=== PATIENT | female | born 1940 | race Caucasian/White ===

== ENCOUNTER 2018-05-29 16:43 | Inpatient (IN) ==
--- NOTE | 2018-05-29 17:42 | ED ---
HPI General Chief Complaint: Arrhythmia / Palpitations Stated Complaint: Medical clearance-high BP Time Seen by Provider: 05/29/18 17:03 Source: patient and family Mode of arrival: wheelchair Limitations: no limitations History of Present Illness HPI narrative: 77-year-old female with a history of hypertension, high cholesterol the presents to the ED for evaluation of high blood pressure and elevated heart rate. Patient has a history of basically feeling like her blood pressure is elevated since Monday. Per patient she went to see her doctor on Monday for pain management and they noticed that her blood pressure was high. Patient states that she was started on amlodipine yesterday and has been having symptoms since. Patient has been checking her blood pressure and is been in the high 180s but since taking amlodipine it seems like it is come down but today she noted that her heart rate went up and she is been having palpitation like sensation. Per patient she is had some chest pressure on her chest that she has had for almost a year now and he has noted improve or worsen. She denies take any blood thinners. She follows with Dr. Conde for cardiology who has done a substantial workup per patient and has not been able to find the source of why patient gets sensation of palpitations at night. Patient denies any urinary or bowel movement issues. No history of thyroid disease. No fevers chills or sweats. No other medical issues at this time. Related Data Home Medications Medication Instructions Recorded Confirmed amlodipine 5 mg PO DAILY 05/29/18 05/29/18 cholecalciferol (vitamin D3) 5,000 unit PO DAILY 05/29/18 05/29/18 [Vitamin D3] cyanocobalamin (vitamin B-12) 1,000 mcg PO DAILY 05/29/18 05/29/18 [B-12 DOTS] fluoxetine 20 mg PO DAILY 05/29/18 05/29/18 melatonin 5 mg PO HS 05/29/18 05/29/18 omeprazole 20 mg PO DAILY 05/29/18 05/29/18 simvastatin 20 mg PO QPM 05/29/18 05/29/18 Allergies Allergy/AdvReac Type Severity Reaction Status Date / Time No Known Allergies Allergy Verified 05/29/18 17:28 Review of Systems ROS: all other systems reviewed are negative PMFSH History History Provided By: Patient Medical History Medical History Depression (Acute) GERD (gastroesophageal reflux disease) (Acute) High cholesterol (Acute) Social History Social History Second Hand Smoke Exposure: No Smoking Status: Never smoker How Often Do You Have a Drink Containing Alcohol: 2 to 4 times a month Recent Travel in [facility] within the Last 8 Weeks: No Recent Out of Country Travel within the Last 8 Weeks: No Exam Narrative Exam Narrative: GENERAL: Well appearing SKIN: Focused skin assessment warm/dry. HEAD: Atraumatic. Normocephalic. EYES: Pupils equal and round. No scleral icterus. No injection or drainage. ENT: No nasal bleeding or discharge. Mucous membranes pink and moist. Tongue is midline. No uvula deviation. NECK: Trachea midline. No JVD. CARDIOVASCULAR: Irregularly irregular rate and rhythm. No murmur appreciated. RESPIRATORY: No accessory muscle use. Clear to auscultation. Breath sounds equal bilaterally. GASTROINTESTINAL: Abdomen soft, non-tender, nondistended. Hepatic and splenic margins not palpable. MUSCULOSKELETAL: No obvious deformities. No clubbing. No cyanosis. No edema. Full range of motion of the upper and lower extremities bilaterally. 2+ pulses bilaterally. NEUROLOGICAL: Awake and alert. No obvious cranial nerve deficits. Motor grossly within normal limits. Normal speech. PSYCHIATRIC: Appropriate mood and affect; insight and judgment normal. Course Initial Documented Vital Signs Temperature 97.9 F 05/29/18 16:49 Pulse Rate 143 H 05/29/18 16:49 Respiratory Rate 18 05/29/18 16:49 Blood Pressure 130/82 05/29/18 16:49 Pulse Oximetry 97 05/29/18 16:49 Last Documented Vital Signs Temperature 97.9 F 05/29/18 16:49 Pulse Rate 105 H 05/29/18 19:02 Respiratory Rate 18 05/29/18 19:02 Blood Pressure 139/70 05/29/18 19:02 Pulse Oximetry 95 05/29/18 19:02 Medical Decision Making MDM Narrative Medical decision making narrative: If patient continues to be symptomatic and this is new onset A. fib I do recommend admission for further evaluation and treatment. My attending Dr. Bello agrees with this. Patient was started on the drip for the diltiazem.77-year-old female that presents to the ED for evaluation of high blood pressure and high pulse. Patient was properly examined and was found to have signs and symptoms consistent with appears to be A. fib and RVR. Patient does not have a history of this in the past. Patient follows with Dr. Alfaro. Appears to be likely new onset. Patient was given diltiazem. Labs and imaging were done. Labs and imaging showed no sign of acute disease alert and what appears to be A. fib and RVR. Patient was given a bolus of diltiazem with improvement of symptoms but the heart rate now 30 minutes later is back in the 100s. Patient was started on the drip. Patient will be admitted for further evaluation of new onset A. fib RVR. Case discussed with my attending Dr. Bello who agrees with plan. Dr Tripathi agrees with admission. Medical Screen Exam Complete: Yes Emergency Medical Condition: Yes Differential Diagnosis Differential Diagnosis: medication side effect versus normal exam versus A. fib and RVR versus atrial fibrillation versus new onset A. fib Medical Records Medical records reviewed: Yes I reviewed the patient's medical records. Lab Data Lab results reviewed: Yes I reviewed the patient's lab results. Result diagrams: 05/29/18 17:36 05/29/18 17:36 Lab Results 05/29/18 05/29/18 05/29/18 Range/Units 17:36 17:36 17:36 WBC 9.4 (4.0-11.0) th/mm3 RBC 4.97 (4.00-5.30) mil/mm3 Hgb 15.5 H (11.6-15.3) gm/dL Hct 44.5 (35.0-46.0) % MCV 89.6 (80.0-100.0) fL MCH 31.2 (27.0-34.0) pg MCHC 34.8 (32.0-36.0) % RDW 13.9 (11.6-17.2) % Plt Count 287 (150-450) th/mm3 MPV 8.5 (7.0-11.0) fL Neut % (Auto) 60.9 (16.0-70.0) % Lymph % (Auto) 26.4 (9.0-44.0) % [place] % (Auto) 10.0 H (0.0-8.0) % Eos % (Auto) 2.0 (0.0-4.0) % Baso % (Auto) 0.7 (0.0-2.0) % Neut # (Auto) 5.7 (1.8-7.7) th/mm3 Lymph # (Auto) 2.5 (1.0-4.8) th/mm3 [place] # (Auto) 0.9 (0.0-0.9) th/mm3 Eos # (Auto) 0.2 (0.0-0.4) th/mm3 Baso # (Auto) 0.1 (0.0-0.2) th/mm3 WBC Differential . Differential Comment Auto diff final PT 10.0 (9.8-11.6) sec INR 1.0 Ratio APTT 27.8 (24.3-30.1) sec Sodium 140 (136-145) meq/L Potassium 4.0 (3.5-5.1) meq/L Chloride 104 (98-107) meq/L Carbon Dioxide 25.8 (21.0-32.0) meq/L Anion Gap 10 (5-15) meq/L BUN 15 (7-18) mg/dL Creatinine 1.04 H (0.50-1.00) mg/dL Estimated GFR 52 L (>89) mL/min Random Glucose 103 (74-106) mg/dL Calcium 8.6 (8.5-10.1) mg/dL Magnesium 2.2 (1.5-2.5) mg/dL Total Bilirubin 0.3 (0.2-1.0) mg/dL AST 27 (15-37) U/L ALT 37 (10-53) U/L Alkaline Phosphatase 92 (45-117) U/L Total Creatine Kinase 120 (26-192) U/L CK-MB (CK-2) 1.0 (0.5-3.6) ng/mL Troponin I Less than 0.02 L (0.02-0.05) ng/mL Total Protein 7.6 (6.4-8.2) g/dL Albumin 3.9 (3.4-5.0) g/dL TSH (0.358-3.740) uIU/mL 05/29/18 Range/Units 17:36 WBC (4.0-11.0) th/mm3 RBC (4.00-5.30) mil/mm3 Hgb (11.6-15.3) gm/dL Hct (35.0-46.0) % MCV (80.0-100.0) fL MCH (27.0-34.0) pg MCHC (32.0-36.0) % RDW (11.6-17.2) % Plt Count (150-450) th/mm3 MPV (7.0-11.0) fL Neut % (Auto) (16.0-70.0) % Lymph % (Auto) (9.0-44.0) % [place] % (Auto) (0.0-8.0) % Eos % (Auto) (0.0-4.0) % Baso % (Auto) (0.0-2.0) % Neut # (Auto) (1.8-7.7) th/mm3 Lymph # (Auto) (1.0-4.8) th/mm3 [place] # (Auto) (0.0-0.9) th/mm3 Eos # (Auto) (0.0-0.4) th/mm3 Baso # (Auto) (0.0-0.2) th/mm3 WBC Differential Differential Comment PT (9.8-11.6) sec INR Ratio APTT (24.3-30.1) sec Sodium (136-145) meq/L Potassium (3.5-5.1) meq/L Chloride (98-107) meq/L Carbon Dioxide (21.0-32.0) meq/L Anion Gap (5-15) meq/L BUN (7-18) mg/dL Creatinine (0.50-1.00) mg/dL Estimated GFR (>89) mL/min Random Glucose (74-106) mg/dL Calcium (8.5-10.1) mg/dL Magnesium (1.5-2.5) mg/dL Total Bilirubin (0.2-1.0) mg/dL AST (15-37) U/L ALT (10-53) U/L Alkaline Phosphatase (45-117) U/L Total Creatine Kinase (26-192) U/L CK-MB (CK-2) (0.5-3.6) ng/mL Troponin I (0.02-0.05) ng/mL Total Protein (6.4-8.2) g/dL Albumin (3.4-5.0) g/dL TSH 1.560 (0.358-3.740) uIU/mL Imaging Data Attestation: I personally reviewed and interpreted this imaging study as follows : Radiologist's impression: Chest X-Ray 05/29/18 17:28 CONCLUSION: No acute cardiopulmonary disease. Head CT 05/29/18 18:21 CONCLUSION: 1. Cerebral atrophy and chronic ischemic small vessel vasculopathy. 2. No acute intracranial abnormality. . ECG Data Attestation: I personally reviewed and interpreted this ECG as follows: Interpretation: EKG shows atrial fibrillation with RVR with a ventricular rate of about 140 bpm. No sign of ST elevations read by me and attending Dr. Bello. Discharge Plan Discharge Disposition Patient Disposition: 30 Still Patient Discharge Details Diagnosis: Atrial fibrillation with RVR Physicians Team ED Provider: Eleuterio Bello ED Midlevel Provider: Adrian Pham Primary Care Provider: Do Chuy Belle Attending Provider: Diane Tripathi Other Providers: [employer] Status ED Status: Admitted Patient
--- NOTE | 2018-05-29 17:53 | XR ---
EXAM DATE: 05/29/2018 5:28 PM EDT AGE/SEX: 77 years / Female INDICATIONS: Palpitations. CLINICAL DATA: This is the patient's initial encounter. Patient reports that signs and symptoms have been present for 1 day and indicates a pain score of 0/10. MEDICAL/SURGICAL HISTORY: None. None. COMPARISON: No prior exams available for comparison. FINDINGS: A single AP view of the chest demonstrates the lungs to be symmetrically aerated without evidence of mass, infiltrate or effusion. Calcified granuloma left upper lobe. Heart mildly enlarged. The cardio mediastinal contours are unremarkable. Osseous structures are intact. CONCLUSION: No acute cardiopulmonary disease. Electronically signed by: Rogelio Covington MD 05/29/2018 5:52 PM EDT
[2018-05-29 18:04] LABS: Baso # (Auto) 0.1 th/mm3 (0.0-0.2); Baso % (Auto) 0.7 % (0.0-2.0); Eos # (Auto) 0.2 th/mm3 (0.0-0.4); Hematocrit 44.5 % (35.0-46.0); Hemoglobin 15.5 gm/dL (11.6-15.3); Lymph # (Auto) 2.5 th/mm3 (1.0-4.8); Lymph % (Auto) 26.4 % (9.0-44.0); Mean Corpuscular HGB Conc 34.8 % (32.0-36.0); Mean Corpuscular Hemoglobin 31.2 pg (27.0-34.0); Mean Corpuscular Volume 89.6 fL (80.0-100.0); Mean Platelet Volume 8.5 fL (7.0-11.0); Mono # (Auto) 0.9 th/mm3 (0.0-0.9); Neut # (Auto) 5.7 th/mm3 (1.8-7.7); Neut % (Auto) 60.9 % (16.0-70.0); Platelet Count 287 th/mm3 (150-450); Red Blood Count 4.97 mil/mm3 (4.00-5.30); Red Cell Distribution Width 13.9 % (11.6-17.2); White Blood Count 9.4 th/mm3 (4.0-11.0)
[2018-05-29 18:15] LABS: Activated Partial Thrombo Time 27.8 sec (24.3-30.1)
[2018-05-29] MEDS ORDERED: Acetaminophen 325 MG Tablet PO ONE (18:21)
[2018-05-29 18:34] LABS: Alanine Aminotransferase 37 U/L (10-53); Albumin 3.9 g/dL (3.4-5.0); Alkaline Phosphatase 92 U/L (45-117); Anion Gap 10 meq/L (5-15); Aspartate Aminotransferase 27 U/L (15-37); Blood Urea Nitrogen 15 mg/dL (7-18); Calcium 8.6 mg/dL (8.5-10.1); Carbon Dioxide 25.8 meq/L (21.0-32.0); Chloride 104 meq/L (98-107); Creatine Kinase 120 U/L (26-192); Glomerular Filtration Rate 52 mL/min (>89); Glucose,Random 103 mg/dL (74-106); Magnesium 2.2 mg/dL (1.5-2.5); Sodium 140 meq/L (136-145); Total Protein 7.6 g/dL (6.4-8.2)
[2018-05-29] MEDS: dilTIAZem Inj 125 MG in Sodium Chlor 0.9% Inj 100 ML IV.CONT PRN (19:23)
--- NOTE | 2018-05-29 19:39 | CT ---
EXAM DATE: 05/29/2018 6:23 PM EDT AGE/SEX: 77 years / Female INDICATIONS: Cephalgia. Elevated blood pressure. CLINICAL DATA: This is the patient's initial encounter. Patient reports that signs and symptoms have been present for 1 day and indicates a pain score of 8/10. MEDICAL/SURGICAL HISTORY: Hypertension. None. RADIATION DOSE: 36.77 CTDI (mGy) COMPARISON: No prior exams available for comparison. TECHNIQUE: CT of the head without contrast. Using automated exposure control and adjustment of the mA and/or kV according to patient size, radiation dose was kept as low as reasonably achievable to ob tain optimal diagnostic quality images. DICOM format image data is available electronically for revi ew and comparison. FINDINGS: Cerebrum: The ventricles are normal for age. There is a low attenuation throughout the white matter. Cerebral atrophy. No evidence of midline shift, mass lesion, hemorrhage or acute infarction. No ext raaxial fluid collections are seen. Posterior Fossa: The cerebellum and brainstem are intact. The 4th ventricle is midline. The cerebe llopontine angle is unremarkable. Extracranial: The visualized portion of the orbits is intact. Skull: The calvaria is intact. No evidence of skull fracture. CONCLUSION: 1. Cerebral atrophy and chronic ischemic small vessel vasculopathy. 2. No acute intracranial abnormality. . Electronically signed by: Rogelio Covington MD 05/29/2018 7:38 PM EDT
--- NOTE | 2018-05-29 21:53 | P.HP ---
History of Present Illness Service: [facility] Primary Care Physician: Do Chuy Belle History of Present Illness: 77-year-old presents to the emergency department for the evaluation of hypertension. The patient reports that since last Monday her blood pressure has been has been taking it regularly with systolic blood pressure ranges of 160 -200. She reports that over the past year she has had 2 episodes of palpitations occurring at night and has had a complete cardiac workup including loop recorder with her harp maker, Dr. Alfaro. Today, the patient called Dr. Alfaro's office and reported her blood pressures. It was recommended that she seek further workup in the emergency department. The patient denies any chest pain or current palpitations. She denies any shortness of breath. Endorses a headache that was relieved with Tylenol. On arrival to the emergency department she was found to be in A. fib with RVR. No abdominal pain. No nausea/vomiting. No fever/chills. No lateralizing signs/symptoms. Inpatient Certification: I certify that the inpatient services were ordered in accordance with Medicare regulations governing the order. This includes certification that hospital inpatient services are reasonable and necessary and in the case of services not specified as inpatient-only under 42 CFR 419.22(n), that they are appropriately provided as inpatient services in accordance to with the 2-midnight benchmark under 43 CFR 412.3(e) Estimated Total Length of Stay (Days): 2 Plans for Post Hospital Care: Home Review of Systems All other systems reviewed negative except as stated in HPI [facility] - History History Provided By: Patient - Medical History Medical History: Medical History (Last Updated 05/29/18 @ 21:50 by Diane Tripathi MD) Chronic back pain Depression GERD (gastroesophageal reflux disease) High cholesterol History of hysterectomy - Surgical History Surgical History: Surgical History (Last Updated 05/29/18 @ 21:50 by Diane Tripathi MD) History of D&C History of appendectomy History of tonsillectomy - Family History Family History: Family History (Last Updated 05/29/18 @ 21:51 by Diane Tripathi MD) Other Coronary artery disease - Tobacco History Second Hand Smoke Exposure: No Smoking Status: Never smoker - Alcohol History How Often Do You Have a Drink Containing Alcohol: 2 to 4 times a month - Travel History Recent Travel in the [place] Within the Last 8 Weeks: No Recent Travel Out of the Country Within the Last 8 Weeks: No - Immunization History Tetanus Immunization: Unsure Medications and Allergies Active Medications: Active Medications Enoxaparin Sodium (Lovenox Inj) 90 mg SQ Q12H [facility] Fluoxetine HCl (Prozac) 20 mg PO DAILY [facility] Diltiazem HCl 125 mg/ Sodium (Chloride) 125 mls @ 5 mls/hr IV.CONT TITRATE PRN ; Protocol PRN Reason: Per Protocol Last Titration: 05/29/18 21:38 Dose: 10 mg/hr, 10 mls/hr Melatonin (Melatonin) 5 mg PO HS MAY Non-Formulary Medication (Omeprazole [Omeprazole]) 20 mg PO DAILY MAY Non-Formulary Medication (Simvastatin [Simvastatin]) 20 mg PO QPM MAY Sodium Chloride (Ns Flush) 2 ml IV.FLUSH UNSCH PRN PRN Reason: FLUSH AFTER USING IV ACCESS Sodium Chloride (Ns Flush) 2 ml IV.FLUSH PRN PRN PRN Reason: FLUSH AFTER USING IV ACCESS Sodium Chloride (Ns Flush) 2 ml IV.FLUSH BID MAY Allergies Allergy/AdvReac Type Severity Reaction Status Date / Time No Known Allergies Allergy Verified 05/29/18 17:28 Home Medications Medication Instructions Recorded Confirmed Type amlodipine 5 mg PO DAILY 05/29/18 05/29/18 History cholecalciferol (vitamin D3) 5,000 unit PO DAILY 05/29/18 05/29/18 History [Vitamin D3] cyanocobalamin (vitamin B-12) 1,000 mcg PO DAILY 05/29/18 05/29/18 History [B-12 DOTS] fluoxetine 20 mg PO DAILY 05/29/18 05/29/18 History melatonin 5 mg PO HS 05/29/18 05/29/18 History omeprazole 20 mg PO DAILY 05/29/18 05/29/18 History simvastatin 20 mg PO QPM 05/29/18 05/29/18 History Exam Vital signs: Vital Signs 05/29/18 16:49 05/29/18 17:28 05/29/18 19:02 Temperature 97.9 F Pulse Rate 143 H 67 105 H Respiratory Rate 18 16 18 Blood Pressure 130/82 117/58 L 139/70 Pulse Oximetry 97 98 95 05/29/18 21:42 Temperature Pulse Rate 100 H Respiratory Rate 18 Blood Pressure 173/65 H Pulse Oximetry 94 L Intake & Output 05/29/18 05/29/18 05/30/18 06:59 18:59 06:59 Weight 90.718 kg Narrative: Gen.: No acute distress Head: Normocephalic. Atraumatic. EENT: Pupils equal round and reactive to light. Nose without drainage. Airway intact. Throat without injection. Cardiovascular: Tachycardic. Irregularly irregular rhythm. No murmurs, rubs or gallops. Respiratory: Lungs clear to auscultation bilaterally. No wheezes or rhonchi. Abdomen: Soft, nontender, nondistended. No peritoneal signs. Musculoskeletal: No gross deformities. No edema. Skin: No obvious rashes or erythema. Neuro: Sensory and motor grossly intact. Cranial nerves II through XII grossly intact. Results - Labs CBC & Chem 7: 05/29/18 17:36 05/29/18 17:36 Labs: Laboratory Results - last 24 hr 05/29/18 05/29/18 05/29/18 17:36 17:36 17:36 WBC 9.4 RBC 4.97 Hgb 15.5 H Hct 44.5 MCV 89.6 MCH 31.2 MCHC 34.8 RDW 13.9 Plt Count 287 MPV 8.5 Neut % (Auto) 60.9 Lymph % (Auto) 26.4 [place] % (Auto) 10.0 H Eos % (Auto) 2.0 Baso % (Auto) 0.7 Neut # (Auto) 5.7 Lymph # (Auto) 2.5 [place] # (Auto) 0.9 Eos # (Auto) 0.2 Baso # (Auto) 0.1 WBC Differential . Differential Comment Auto diff final PT 10.0 INR 1.0 APTT 27.8 Sodium 140 Potassium 4.0 Chloride 104 Carbon Dioxide 25.8 Anion Gap 10 BUN 15 Creatinine 1.04 H Estimated GFR 52 L Random Glucose 103 Calcium 8.6 Magnesium 2.2 Total Bilirubin 0.3 AST 27 ALT 37 Alkaline Phosphatase 92 Total Creatine Kinase 120 CK-MB (CK-2) 1.0 Troponin I Less than 0.02 L Total Protein 7.6 Albumin 3.9 TSH 05/29/18 17:36 WBC RBC Hgb Hct MCV MCH MCHC RDW Plt Count MPV Neut % (Auto) Lymph % (Auto) [place] % (Auto) Eos % (Auto) Baso % (Auto) Neut # (Auto) Lymph # (Auto) [place] # (Auto) Eos # (Auto) Baso # (Auto) WBC Differential Differential Comment PT INR APTT Sodium Potassium Chloride Carbon Dioxide Anion Gap BUN Creatinine Estimated GFR Random Glucose Calcium Magnesium Total Bilirubin AST ALT Alkaline Phosphatase Total Creatine Kinase CK-MB (CK-2) Troponin I Total Protein Albumin TSH 1.560 - Imaging Impressions Chest X-Ray 05/29/18 17:28 CONCLUSION: No acute cardiopulmonary disease. Head CT 05/29/18 18:21 CONCLUSION: 1. Cerebral atrophy and chronic ischemic small vessel vasculopathy. 2. No acute intracranial abnormality. . Caprini VTE Risk Assessment Caprini VTE Risk Assessment: Moderate/High Risk (score >= 2) Caprini Risk Assessment Model: Point Value = 1 Point Value = 2 Point Value = 3 Point Value = 5 Age 41-60 Minor surgery BMI > 25 kg/m2 Swollen legs Varicose veins or History of unexplained or recurrent spontaneous Oral contraceptives or hormone replacement Sepsis (< 1 month) Serious lung disease, including pneumonia (< 1 month) Abnormal pulmonary function Acute myocardial infarction Congestive heart failure (< 1 month) History of inflammatory bowel disease Medical patient at bed rest Age 61-74 Arthroscopic surgery Major open surgery (> 45 min) Laparoscopic surgery (> 45 min) Malignancy Confined to bed (> 72 hours) Immobilizing plaster cast Central venous access Age >= 75 History of VTE Family history of VTE Factor V Leiden Prothrombin [id number] Lupus anticoagulant Anticardiolipin antibodies Elevated serum homocysteine Heparin-induced thrombocytopenia Other congenital or acquired thrombophilia Stroke (< 1 month) Elective arthroplasty Hip, pelvis, or leg fracture Acute spinal cord injury (< 1 month) Prophylaxis Regimen: Total Risk Factor Score Risk Level Prophylaxis Regimen 0-1 Low Early ambulation 2 Moderate Order ONE of the following: *Sequential Compression Device (SCD) *Heparin 5000 units SQ BID 3-4 Higher Order ONE of the following medications: *Heparin 5000 units SQ TID *Enoxaparin/Lovenox 40 mg SQ daily (WT < 150 kg, CrCl > 30 mL/min) *Enoxaparin/Lovenox 30 mg SQ daily (WT < 150 kg, CrCl > 10-29 mL/min) *Enoxaparin/Lovenox 30 mg SQ BID (WT < 150 kg, CrCl > 30 mL/min) AND/OR *Sequential Compression Device (SCD) 5 or more Highest Order ONE of the following medications: *Heparin 5000 units SQ TID (Preferred with Epidurals) *Enoxaparin/Lovenox 40 mg SQ daily (WT < 150 kg, CrCl > 30 mL/min) *Enoxaparin/Lovenox 30 mg SQ daily (WT < 150 kg, CrCl > 10-29 mL/min) *Enoxaparin/Lovenox 30 mg SQ BID (WT < 150 kg, CrCl > 30 mL/min) AND *Sequential Compression Device (SCD) Assessment and Plan - Plan Assessment/plan: 1. Atrial fibrillation (new onset) with RVR EKG significant for atrial fibrillation with rapid ventricular response, no signs of ischemia, personally reviewed Initial troponin negative Patient denies chest pain Diltiazem bolus and drip Therapeutic Lovenox Patient's harp maker, Dr. Alfaro consulted, appreciate recommendations 2. Hyperlipidemia Continue home statin 3. Hypertension Holding home amlodipine is patient on diltiazem drip 4. Depression Continue home Prozac FEN Cardiac diet Electrolytes: Monitor and replete as needed Therapeutic Lovenox
[2018-05-29] MEDS: Enoxaparin Inj 100 MG/ML Syringe SQ SCH (22:21)
[2018-05-30 05:53] LABS: Hemoglobin 14.8 gm/dL (11.6-15.3); Mean Corpuscular HGB Conc 33.5 % (32.0-36.0); Mean Corpuscular Hemoglobin 30.6 pg (27.0-34.0); Mean Corpuscular Volume 91.2 fL (80.0-100.0); Mean Platelet Volume 8.4 fL (7.0-11.0); Platelet Count 272 th/mm3 (150-450); Red Blood Count 4.83 mil/mm3 (4.00-5.30); Red Cell Distribution Width 13.4 % (11.6-17.2); White Blood Count 7.2 th/mm3 (4.0-11.0)
[2018-05-30 06:19] LABS: Calcium 8.6 mg/dL (8.5-10.1); Potassium 3.5 meq/L (3.5-5.1)
[2018-05-30] MEDS: Pantoprazole Sodium 20 MG DR Tablet PO SCH (08:44)
--- NOTE | 2018-05-30 10:18 | P.PN ---
Subjective Interval history: Nursing reports that the patient is complaining of nausea. Patient says she normally does not have nausea on a daily basis. Her heart rate was stable overnight however now it is running up to the 140s while she is on Cardizem drip at this time. Physical Exam Vital signs: Vital Signs 05/29/18 16:49 05/29/18 17:28 05/29/18 19:02 Temperature 97.9 F Pulse Rate 143 H 67 105 H Respiratory Rate 18 16 18 Blood Pressure 130/82 117/58 L 139/70 Pulse Oximetry 97 98 95 05/29/18 21:42 05/29/18 21:57 05/29/18 22:22 Temperature Pulse Rate 100 H 105 H 96 H Respiratory Rate 18 18 18 Blood Pressure 173/65 H 173/65 H 144/76 H Pulse Oximetry 94 L 96 94 L 05/30/18 00:00 05/30/18 01:00 05/30/18 02:00 Temperature 98.2 F Pulse Rate 99 H 97 H 101 H Respiratory Rate 18 Blood Pressure 135/88 Pulse Oximetry 96 05/30/18 03:00 05/30/18 04:00 05/30/18 05:00 Temperature 97.8 F Pulse Rate 93 H 95 H 97 H Respiratory Rate 16 Blood Pressure 116/71 Pulse Oximetry 95 05/30/18 06:00 05/30/18 07:00 Temperature Pulse Rate 96 H 79 Respiratory Rate Blood Pressure Pulse Oximetry Intake & Output 05/29/18 05/30/18 05/30/18 18:59 06:59 18:59 Intake Total 240 / 240 Balance 240 / 240 Weight 90.718 kg 90.5 kg Intake: Oral 240 / 240 Other: Date of Last Bowel Movement 05/29/18 Narrative: Heart rate is very tachycardic, irregular Clear lungs bilaterally, unlabored breathing Abdomen soft, nontender, nondistended Results - Labs CBC & Chem 7: 05/30/18 05:08 05/31/18 04:17 Laboratory Results - last 24 hr 05/29/18 05/29/18 05/29/18 17:36 17:36 17:36 WBC 9.4 RBC 4.97 Hgb 15.5 H Hct 44.5 MCV 89.6 MCH 31.2 MCHC 34.8 RDW 13.9 Plt Count 287 MPV 8.5 Neut % (Auto) 60.9 Lymph % (Auto) 26.4 [place] % (Auto) 10.0 H Eos % (Auto) 2.0 Baso % (Auto) 0.7 Neut # (Auto) 5.7 Lymph # (Auto) 2.5 [place] # (Auto) 0.9 Eos # (Auto) 0.2 Baso # (Auto) 0.1 WBC Differential . Differential Comment Auto diff final PT 10.0 INR 1.0 APTT 27.8 Sodium 140 Potassium 4.0 Chloride 104 Carbon Dioxide 25.8 Anion Gap 10 BUN 15 Creatinine 1.04 H Estimated GFR 52 L Random Glucose 103 Calcium 8.6 Magnesium 2.2 Total Bilirubin 0.3 AST 27 ALT 37 Alkaline Phosphatase 92 Total Creatine Kinase 120 CK-MB (CK-2) 1.0 Troponin I Less than 0.02 L Total Protein 7.6 Albumin 3.9 TSH 05/29/18 05/30/18 05/30/18 17:36 05:08 05:08 WBC 7.2 RBC 4.83 Hgb 14.8 Hct 44.0 MCV 91.2 MCH 30.6 MCHC 33.5 RDW 13.4 Plt Count 272 MPV 8.4 Neut % (Auto) Lymph % (Auto) [place] % (Auto) Eos % (Auto) Baso % (Auto) Neut # (Auto) Lymph # (Auto) [place] # (Auto) Eos # (Auto) Baso # (Auto) WBC Differential Differential Comment PT INR APTT Sodium 142 Potassium 3.5 Chloride 102 Carbon Dioxide 27.0 Anion Gap 13 BUN 15 Creatinine 0.81 Estimated GFR 69 L Random Glucose 110 H Calcium 8.6 Magnesium Total Bilirubin AST ALT Alkaline Phosphatase Total Creatine Kinase CK-MB (CK-2) Troponin I Total Protein Albumin TSH 1.560 - Imaging Impressions Chest X-Ray 05/29/18 17:28 CONCLUSION: No acute cardiopulmonary disease. Head CT 05/29/18 18:21 CONCLUSION: 1. Cerebral atrophy and chronic ischemic small vessel vasculopathy. 2. No acute intracranial abnormality. . Assessment and Plan - Plan 77-year-old white female who was admitted with A. fib with RVR. 1. Atrial fibrillation (new onset) with RVR Status post diltiazem bolus, still requiring diltiazem drip, cardiology following I will start oral cardizem for now 30 mg qid until cards adjust meds or HR improves Therapeutic Lovenox, patient counseled regarding oral anticoagulation with risks and benefits 2. Hyperlipidemia Continue home statin 3. Hypertension Holding home amlodipine as patient on diltiazem drip Monitor for now, still elevated after coming off of diltiazem drip may benefit from starting lisinopril 4. Depression Continue home Prozac Addendum: Nursing reports that the patient is having her third round of emesis this morning which is nonbloody. Patient reported having some diarrhea as well. No chest pain. dose of Zofran. Will monitor, likely acute gastroenteritis which could be causing her A. fib flareup.
--- NOTE | 2018-05-30 10:48 | ECG ---
Date Performed: 05/29/2018 Time Performed: 17:22:29 PTAGE: 77 years EKG: ATRIAL FIBRILLATION WITH RAPID VENTRICULAR RESPONSE MINIMAL ST DEPRESSION ABNORMAL RHYTHM E CG NO PREVIOUS TRACING DOCTOR: Pedro Taylor Interpretating Date/Time 05/30/2018 10:47:05
[2018-05-30] MEDS: Enoxaparin Inj 100 MG/ML Syringe SQ SCH ×2 (12:53→22:21)
[2018-05-30] MEDS: FLUoxetine 20 MG Capsule PO SCH (12:53)
[2018-05-30] MEDS: dilTIAZem Inj 125 MG in Sodium Chlor 0.9% Inj 100 ML IV.CONT PRN ×2 (15:02→22:23)
[2018-05-30] MEDS: dilTIAZem 30 MG Tablet PO SCH ×3 (15:48→22:20)
--- NOTE | 2018-05-30 18:46 | ECHRPT ---
Indication: A FIB FLUTTER CONCLUSIONS The left ventricular systolic function is normal with an estimated ejection fraction in the range of 55-60%. Mild concentric left ventricular hypertrophy. Trace mitral valve regurgitation. There is trace tricuspid valve regurgitation. BP: / HR: Rhythm: MEASUREMENTS (Male / Female) Normal Values Technical Quality: 2D ECHO LV Diastolic Diameter PLAX 5.2 cm 4.2 - 5.9 / 3.9 - 5.3 cm LV Systolic Diameter PLAX 3.8 cm IVS Diastolic Thickness 1.3 cm 0.6 - 1.0 / 0.6 - 0.9 cm LVPW Diastolic Thickness 1.0 cm 0.6 - 1.0 / 0.6 - 0.9 cm LV Relative Wall Thickness 0.4 RV Internal Dim ED PLAX 1.7 cm Aortic Root Diameter 2.6 cm LA Systolic Diameter LX 3.9 cm 3.0 - 4.0 / 2.7 - 3.8 cm DOPPLER Mitral E Point Velocity 99.3 cm/s TR Peak Velocity 194.5 cm/s TR Peak Gradient 15.1 mmHg Right Atrial Pressure 10.0 mmHg Pulmonary Artery Systolic Pressu 25.1 mmHg Right Ventricular Systolic Press 25.1 mmHg PV Peak Velocity 107.0 cm/s PV Peak Gradient 4.6 mmHg FINDINGS LEFT VENTRICLE Normal left ventricular size. The left ventricular systolic function is normal with an estimated ejection fraction in the range of 55-60%. No regional wall motion abnormalities are present. Mild concentric left ventricular hypertrophy. RIGHT VENTRICLE Normal right ventricular size and systolic function. LEFT ATRIUM The left atrial size is upper limits of normal. RIGHT ATRIUM The right atrial size is normal. ATRIAL SEPTUM Normal atrial septal thickness without atrial level shunting by limited color doppler interrogation. AORTA The aortic root and proximal ascending aorta are normal in size on limited imaging. MITRAL VALVE Structurally normal mitral valve. Trace mitral valve regurgitation. AORTIC VALVE Trileaflet aortic valve. No aortic valve stenosis or regurgitation. TRICUSPID VALVE Structurally normal tricuspid valve. There is trace tricuspid valve regurgitation. The estimated pulmonary arterial pressure is 25 mmHg. PULMONARY VALVE No pulmonary valve regurgitation or stenosis. VESSELS The inferior vena cava is normal in size. PERICARDIUM No pericardial effusion. David Alfaro DO (Electronically Signed) Final Date:30 May 2018 18:45
[2018-05-30] MEDS ORDERED: Melatonin 5 MG Tablet PO SCH (21:00)
--- NOTE | 2018-05-30 23:50 | MB ---
cc: David Alfaro DO DATE: 05/30/2018 REASON FOR CONSULTATION: Atrial fibrillation with rapid ventricular response. HISTORY OF PRESENT ILLNESS: Eda Dumont is a pleasant 77-year-old female, whom I see in the office and asked to be evaluated at the emergency room due to elevated heart rates. She had noticed that her blood pressure was elevated and she was started on Norvasc at that time. She continued to watch her blood pressures and they seemed to come down from 160-200 systolically down to 140s, but she also mentioned that her heart rates were 120-140. She has had 2 previous episodes of palpitations for which she did an event monitor, but did not show any previous arrhythmias. As she said that she was noting her heart was racing and not feeling well, I asked that she come to the emergency room. On arrival, she was found to be in atrial fibrillation with rapid ventricular response and started on a Cardizem drip. She is currently at 10 mg/hour and heart rates were controlled this morning until she got nauseous after eating breakfast. She states this is a relatively normal event for. After this, her heart rate has increased to 120s-140s. She denies any chest pain or shortness of breath. PAST MEDICAL HISTORY: 1. Chronic back pain. 2. Depression. 3. Gastroesophageal reflux disease. 4. Hyperlipidemia. PAST SURGICAL HISTORY: 1. Hysterectomy. 2. D and C. 3. Appendectomy. 4. Tonsillectomy. ALLERGIES: NO KNOWN DRUG ALLERGIES. MEDICATIONS: 1. Zocor 20 mg every night. 2. Omeprazole 20 mg daily. 3. Melatonin 5 mg every night. 4. Fluoxetine 20 mg daily. 5. Norvasc 5 mg daily. FAMILY HISTORY: Denies premature coronary artery disease or sudden cardiac within the family. SOCIAL HISTORY: The patient is a lifelong nonsmoker. She rarely drinks alcohol. Denies any drug abuse. REVIEW OF SYSTEMS: Fourteen systems were reviewed including osteopathic. Pertinent positives and negatives above, otherwise negative. PHYSICAL EXAMINATION: VITAL SIGNS: Temperature 98.5, heart rate 130, blood pressure 149/70, respirations 17, pulse oximetry 96% on room air. GENERAL: The patient appears well, in no acute distress, alert, awake and oriented x3. HEENT: Extraocular muscles intact. Mucous membranes moist. NECK: Supple. No JVD at 45 degrees. No carotid bruits heard bilaterally. Carotid upstroke is brisk in nature. HEART: Irregularly irregular and tachycardic. Positive first and second heart sounds with no noted murmurs, gallops or rubs. LUNGS: Clear to auscultation bilaterally. No wheezes, rales or rhonchi. ABDOMEN: Soft, nontender, nondistended. No organomegaly noted. EXTREMITIES: Show trace edema bilaterally, but no clubbing or cyanosis. Femoral and distal pulses are intact bilaterally. NEUROLOGIC: No focal deficits. SKIN: Warm, dry and intact. OSTEOPATHIC: No kyphoscoliosis, lordosis or paraspinal tender points. LABORATORY DATA: Hemoglobin 14.8, hematocrit 44.0, platelets 272. Potassium 3.5, BUN 15, creatinine 0.81. Troponin less than 0.02. Electrocardiogram (05/29/2018 at 1722): Atrial fibrillation with rapid ventricular response, nonspecific ST-T wave changes. IMPRESSION: 1. New onset atrial fibrillation with rapid ventricular response. 2. Hyperlipidemia. 3. Hypertension. 4. Depression. RECOMMENDATIONS: 1. Ms. Dumont presented with atrial fibrillation with rapid ventricular response and was previously controlled, but since having nauseousness this morning, her heart rates are elevated again. 2. We will plan on increasing her Cardizem drip to 15 mg/hour to see if this will further control her heart rate. If this does control her heart rate. We will change her Norvasc to Cardizem p.o. 3. If unable to control her heart rate, then I would consider doing a YULIA and cardioversion to try to place her back into sinus rhythm. This can also be considered. Even if her heart rates are better controlled as this seems to probably be a new onset atrial fibrillation. 4. She has a CHADS-VASc score of 4, and because of this, I would recommend her being placed on a NOAC. We will plan on placing her on Eliquis 5 mg b.i.d. I did discuss with her and she is worried about how much her insurance will cover, but after being discharged from the hospital, she will apply for patient assistance through the company. 5. We will check a 2-D echo to look at her overall left ventricular function, cardiac structure and possible valvulopathies. 6. Further recommendations will be made based on her hospital course. Thank you for allowing me to see Eda Dumont. If there are any questions, please do not hesitate to call. David Alfaro DO VGP/sj , 10:39 PM , 10:51 PM
[2018-05-31 05:17] LABS: Albumin 3.4 g/dL (3.4-5.0); Anion Gap 9 meq/L (5-15); Aspartate Aminotransferase 18 U/L (15-37); Blood Urea Nitrogen 16 mg/dL (7-18); Calcium 9.1 mg/dL (8.5-10.1); Carbon Dioxide 25.7 meq/L (21.0-32.0); Chloride 105 meq/L (98-107); Glomerular Filtration Rate 60 mL/min (>89); Glucose,Random 135 mg/dL (74-106); Potassium 3.5 meq/L (3.5-5.1); Sodium 140 meq/L (136-145)
[2018-05-31 05:20] LABS: Alanine Aminotransferase 31 U/L (10-53); Alkaline Phosphatase 77 U/L (45-117); Total Protein 6.8 g/dL (6.4-8.2)
[2018-05-31] MEDS: dilTIAZem Inj 125 MG in Sodium Chlor 0.9% Inj 100 ML IV.CONT PRN (08:50)
[2018-05-31] MEDS: Pantoprazole Sodium 20 MG DR Tablet PO SCH (08:59)
[2018-05-31] MEDS: FLUoxetine 20 MG Capsule PO SCH (09:00)
[2018-05-31] MEDS ORDERED: Naproxen 500 MG Tablet PO ONE (10:05)
[2018-05-31 13:28] VITALS: RESP 18
[2018-05-31] MEDS ORDERED: dilTIAZem CD 180 MG Capsule PO ONE (14:00)
[2018-05-31 16:03] VITALS: PULSE 78
[2018-05-31 16:07] VITALS: BP 140/63; TEMP 98.5; O2SAT 96
--- NOTE | 2018-05-31 16:46 | P.PN ---
Subjective Interval history: Nursing denies any deterioration since last night. Patient tolerating p.o. intake. No palpitations. Physical Exam Vital signs: Vital Signs 05/30/18 17:00 05/30/18 19:00 05/30/18 20:00 Temperature 98.3 F Pulse Rate 93 H 86 76 Respiratory Rate 16 Blood Pressure 141/67 H Pulse Oximetry 05/30/18 23:00 05/31/18 00:00 05/31/18 02:04 Temperature 98.4 F Pulse Rate 65 88 64 Respiratory Rate 16 Blood Pressure 150/70 H Pulse Oximetry 05/31/18 03:00 05/31/18 04:00 05/31/18 05:55 Temperature 98.2 F Pulse Rate 71 68 75 Respiratory Rate 16 Blood Pressure 154/62 H Pulse Oximetry 05/31/18 06:00 05/31/18 08:00 05/31/18 12:00 Temperature 98.4 F 98.3 F Pulse Rate 65 67 56 L Respiratory Rate 16 18 Blood Pressure 123/59 L 123/57 L Pulse Oximetry 94 L 94 L 05/31/18 13:00 05/31/18 14:00 05/31/18 15:00 Temperature Pulse Rate 68 68 66 Respiratory Rate Blood Pressure Pulse Oximetry 05/31/18 16:00 Temperature 98.5 F Pulse Rate 78 Respiratory Rate 18 Blood Pressure 140/63 Pulse Oximetry 96 Intake & Output 05/30/18 05/31/18 05/31/18 18:59 06:59 18:59 Intake Total 125 / 125 365 / 365 125 / 125 Balance 125 / 125 365 / 365 125 / 125 Weight 90.5 kg Intake: IV 125 / 125 125 / 125 125 / 125 Cardizem Inj 125 MG In NS Inj 125 / 125 125 / 125 125 / 125 100 ML @ 5 MG/HR 5 mls/hr IV. CONT TITRATE PRN Rx#:[id number] Oral 240 / 240 Other: # Voids 2 Date of Last Bowel Movement 05/30/18 Narrative: Regular rate irregular rhythm Clear lungs bilaterally, unlabored breathing Results - Labs CBC & Chem 7: 05/30/18 05:08 05/31/18 04:17 Laboratory Results - last 24 hr 05/31/18 04:17 Sodium 140 Potassium 3.5 Chloride 105 Carbon Dioxide 25.7 Anion Gap 9 BUN 16 Creatinine 0.92 Estimated GFR 60 L Random Glucose 135 H Calcium 9.1 Total Bilirubin 0.4 AST 18 ALT 31 Alkaline Phosphatase 77 Total Protein 6.8 D Albumin 3.4 Assessment and Plan - Plan 77-year-old white female who was admitted with A. fib with RVR. 1. Atrial fibrillation (new onset) with RVR Status post diltiazem bolus, -Now off the diltiazem drip, on oral Cardizem, heart rate controlled -Eliquis per cardiology Patient has met maximal benefit from hospitalization and is clinically stable for discharge.
--- NOTE | 2018-05-31 18:34 | P.PNCA ---
Subjective Interval history: No events overnight Heart rates controlled, Cardizem PO given and now off Cardizem drip No chest pain, SOB, or palpitations Medications and Allergies Allergies Allergy/AdvReac Type Severity Reaction Status Date / Time No Known Allergies Allergy Verified 05/29/18 17:28 Home Medications Medication Instructions Recorded Confirmed Type cholecalciferol (vitamin D3) 5,000 unit PO DAILY 05/29/18 05/29/18 History [Vitamin D3] cyanocobalamin (vitamin B-12) 1,000 mcg PO DAILY 05/29/18 05/29/18 History [B-12 DOTS] fluoxetine 20 mg PO DAILY 05/29/18 05/29/18 History melatonin 5 mg PO HS 05/29/18 05/29/18 History omeprazole 20 mg PO DAILY 05/29/18 05/29/18 History simvastatin 20 mg PO QPM 05/29/18 05/29/18 History Physical Exam Vital signs: Vital Signs 05/30/18 19:00 05/30/18 20:00 05/30/18 23:00 Temperature 98.3 F Pulse Rate 86 76 65 Respiratory Rate 16 Blood Pressure 141/67 H Pulse Oximetry 05/31/18 00:00 05/31/18 02:04 05/31/18 03:00 Temperature 98.4 F Pulse Rate 88 64 71 Respiratory Rate 16 Blood Pressure 150/70 H Pulse Oximetry 05/31/18 04:00 05/31/18 05:55 05/31/18 06:00 Temperature 98.2 F Pulse Rate 68 75 65 Respiratory Rate 16 Blood Pressure 154/62 H Pulse Oximetry 05/31/18 08:00 05/31/18 12:00 05/31/18 13:00 Temperature 98.4 F 98.3 F Pulse Rate 67 56 L 68 Respiratory Rate 16 18 Blood Pressure 123/59 L 123/57 L Pulse Oximetry 94 L 94 L 05/31/18 14:00 05/31/18 15:00 05/31/18 16:00 Temperature 98.5 F Pulse Rate 68 66 78 Respiratory Rate 18 Blood Pressure 140/63 Pulse Oximetry 96 Intake & Output 05/30/18 05/31/18 05/31/18 18:59 06:59 18:59 Intake Total 125 / 125 365 / 365 125 / 125 Balance 125 / 125 365 / 365 125 / 125 Weight 90.5 kg Intake: IV 125 / 125 125 / 125 125 / 125 Cardizem Inj 125 MG In NS Inj 125 / 125 125 / 125 125 / 125 100 ML @ 5 MG/HR 5 mls/hr IV. CONT TITRATE PRN Rx#:[id number] Oral 240 / 240 Other: # Voids 2 Date of Last Bowel Movement 05/30/18 Narrative: GENERAL: NAD, AAOx3 SKIN: Warm and dry. HEAD: Atraumatic. Normocephalic. EYES: Pupils equal and round. No scleral icterus. No injection or drainage. ENT: No nasal bleeding or discharge. Mucous membranes pink and moist. NECK: Trachea midline. No JVD. CARDIOVASCULAR: Irregularly irregular RESPIRATORY: No accessory muscle use. Clear to auscultation. Breath sounds equal bilaterally. GASTROINTESTINAL: Abdomen soft, non-tender, nondistended. Hepatic and splenic margins not palpable. MUSCULOSKELETAL: Extremities without clubbing, cyanosis, or edema. No obvious deformities. NEUROLOGICAL: Awake and alert. No obvious cranial nerve deficits. Motor grossly within normal limits. Five out of 5 muscle strength in the arms and legs. Normal speech. PSYCHIATRIC: Appropriate mood and affect; insight and judgment normal. Results 05/30/18 05:08 05/31/18 04:17 Cardiac Enzymes 05/29/18 05/31/18 Range/Units 17:36 04:17 AST 27 18 (15-37) U/L CK-MB (CK-2) 1.0 (0.5-3.6) ng/mL Troponin I Less than 0.02 L (0.02-0.05) ng/mL CBC 05/30/18 Range/Units 05:08 WBC 7.2 (4.0-11.0) th/mm3 RBC 4.83 (4.00-5.30) mil/mm3 Hgb 14.8 (11.6-15.3) gm/dL Hct 44.0 (35.0-46.0) % Plt Count 272 (150-450) th/mm3 Comprehensive Metabolic Panel 05/29/18 05/30/18 05/31/18 Range/Units 17:36 05:08 04:17 Sodium 140 142 140 (136-145) meq/L Potassium 4.0 3.5 3.5 (3.5-5.1) meq/L Chloride 104 102 105 (98-107) meq/L Carbon Dioxide 25.8 27.0 25.7 (21.0-32.0) meq/L BUN 15 15 16 (7-18) mg/dL Creatinine 1.04 H 0.81 0.92 (0.50-1.00) mg/dL Calcium 8.6 8.6 9.1 (8.5-10.1) mg/dL AST 27 18 (15-37) U/L ALT 37 31 (10-53) U/L Alkaline Phosphatase 92 77 (45-117) U/L Total Protein 7.6 6.8 D (6.4-8.2) g/dL Albumin 3.9 3.4 (3.4-5.0) g/dL Intake and Output 05/31/18 05/31/18 05/31/18 06:59 14:59 22:59 Intake Total 240 / 240 125 / 125 Balance 240 / 240 125 / 125 Intake: IV 125 / 125 Cardizem Inj 125 MG In NS Inj 125 / 125 100 ML @ 5 MG/HR 5 mls/hr IV. CONT TITRATE PRN Rx#:[id number] Oral 240 / 240 Other: # Voids 2 Date of Last Bowel Movement 05/30/18 Weight 90.5 kg - Imaging and Cardiology Imaging: Impressions Head CT 05/29/18 18:21 CONCLUSION: 1. Cerebral atrophy and chronic ischemic small vessel vasculopathy. 2. No acute intracranial abnormality. . Assessment and Plan - Assessment (1) HTN (hypertension) Code(s): I10 - Essential (primary) hypertension Status: Acute (2) Atrial fibrillation with RVR Code(s): I48.91 - Unspecified atrial fibrillation Status: Acute - Plan 1) Afib with RVR Heart rate controlled Will change to Cardizem CD 360mg 2) Eliquis 5mg BID 3) Cardiovascularly stable for discharge She has follow up with me in 2 weeks in the office 4) Will reassess in the office how she's doing If still having problems then most likely YULIA with CV
== END 2018-05-31 17:42 | disposition home or self-care (01) ==
LOC: NEPE 16:43 → NEDA 20:29 → HCPC 23:42
PROVIDERS: ADMIT Hospitalist; ATTEND Hospitalist